=== PATIENT | male | born 1955 | race African-American/Black ===

== ENCOUNTER 2016-08-14 05:23 | Day surgery (SDC) | payer MEDICARE ==
[~2016-08-14] VITALS: Ht 170.2 cm; Wt 94.5 kg
[~2016-08-14 05:23] MED LIST: ATOR10TA84 PO; CLOT15C TP; DULO30CA2 PO; GLIP5 PO; HYDR30CR91 TP; LIDO5CRE18 TP; LORA10TA7 PO; LOVA40TA2 PO; METF500T4 PO; [UNRECOGNIZED DRUG - CODE] TP; [UNRECOGNIZED DRUG - CODE] TP
[2016-08-14] MEDS ORDERED: SODIUM CHLORIDE 0.9% 1,000 ML IV ONE ×2 (05:30→05:48)
[2016-08-14 06:33] LABS: GLUCOSE,POINT OF CARE 130 MG/DL (70-110)
[2016-08-14] MEDS ORDERED: LIDOCAINE HCL/PF 2% 5 ML VIAL ONE (07:36)
[2016-08-14] MEDS ORDERED: IOHEXOL 300 MG/ML 10 ML VIAL ONE (07:36)
[2016-08-14] MEDS ORDERED: FentaNYL CITRATE-PF 100 MCG/2 ML VIAL ONE (07:36)
[2016-08-14] MEDS ORDERED: MIDAZOLAM HCL 2 MG/2 ML VIAL ONE (07:36)
[2016-08-14] MEDS ORDERED: TRIAMCINOLONE ACETONIDE 40 MG/ML VIAL ONE (07:36)
[2016-08-14] MEDS ORDERED: LIDOCAINE HCL/PF 1% 30 ML VIAL ONE (07:36)
[2016-08-14] MEDS ORDERED: BUPIVACAINE HCL/PF 0.75% 10 ML VIAL ONE (07:36)
[2016-08-14] MEDS ORDERED: SODIUM BICARBONATE 50 MEQ/50 ML VIAL ONE (07:37)
[2016-08-14 07:44] VITALS: BP 139/74
[2016-08-14] MEDS ORDERED: BUPIVACAINE HCL/PF 0.75% 10 ML VIAL IARTIC ONE (08:00)
[2016-08-14] MEDS ORDERED: MIDAZOLAM HCL 2 MG/2 ML VIAL IVP ONE (08:00)
[2016-08-14] MEDS ORDERED: TRIAMCINOLONE ACETONIDE 40 MG/ML VIAL IARTIC ONE (08:00)
[2016-08-14] MEDS ORDERED: IOHEXOL 300 MG/ML 10 ML VIAL IARTIC ONE (08:00)
[2016-08-14] MEDS ORDERED: LIDOCAINE HCL/PF 2% 5 ML VIAL IARTIC ONE (08:00)
[2016-08-14] MEDS ORDERED: FentaNYL CITRATE-PF 100 MCG/2 ML VIAL IVP ONE (08:00)
[2016-08-14] MEDS ORDERED: LIDOCAINE 1% 30 ML/SOD BICARB 8.4% 4 ML SQ ONE (08:00)
[2016-08-14 08:10] VITALS: BP 109/65
== END 2016-08-14 10:05 | disposition home or self-care (01) ==
LOC: SDS 05:23
PROVIDERS: ATTEND Specialist
DX: M47.816 Spondylosis without myelopathy or radiculopathy, lumbar region (principal); M54.40 Lumbago with sciatica, unspecified side; E11.9 Type 2 diabetes mellitus without complications; M77.9 Enthesopathy, unspecified; F17.200 Nicotine dependence, unspecified, uncomplicated; F12.90 Cannabis use, unspecified, uncomplicated; Z98.890 Other specified postprocedural states
CPT/HCPCS: 64493; 64494; 82962; J2250; J3010; J3301; J3490 ×4; J7030; Q9967

== ENCOUNTER 2020-04-21 15:45 | Emergency (ER) | payer MEDICARE ==
[~2020-04-21] VITALS: Ht 177.8 cm; Wt 90.9 kg
[~2020-04-21 15:45] MED LIST changes: -DULO30CA2 PO; +DULO30CA96 PO; +METF-444 PO; -METF500T4 PO
[2020-04-21 15:56] VITALS: BP 156/91
[2020-04-21 16:06] LABS: GLUCOSE,POINT OF CARE 59 MG/DL (70-110)
[2020-04-21] MEDS ORDERED: CYCLOBENZAPRINE HCL 10 MG TABLET PO ONE (17:00)
[2020-04-21] MEDS ORDERED: KETOROLAC TROMETHAMINE 30 MG/ML VIAL IM ONE (17:00)
== END 2020-04-21 17:46 | disposition home or self-care (01) ==
LOC: EMS 15:45
DX: M54.5 Low back pain (principal); M25.511 Pain in right shoulder; G89.29 Other chronic pain; E11.9 Type 2 diabetes mellitus without complications; I10 Essential (primary) hypertension; F17.210 Nicotine dependence, cigarettes, uncomplicated
CPT/HCPCS: 82962; 96372; 99283; J1885

== ENCOUNTER 2020-04-22 09:18 | Emergency (ER) | payer MEDICARE ==
[~2020-04-22] VITALS: Ht 167.6 cm; Wt 90.9 kg
[2020-04-22] MEDS ORDERED: ACETAMINOPHEN 500 MG TABLET PO ONE (10:15)
[2020-04-22] MEDS ORDERED: KETOROLAC TROMETHAMINE 30 MG/ML VIAL IM ONE (10:15)
[2020-04-22] MEDS ORDERED: LIDOCAINE 5% TRANSDERMAL PATCH TD ONE (10:15)
[2020-04-22 10:20] VITALS: BP 137/84
== END 2020-04-22 10:38 | disposition home or self-care (01) ==
LOC: EMS 09:18
DX: M54.6 Pain in thoracic spine (principal); E11.9 Type 2 diabetes mellitus without complications; I10 Essential (primary) hypertension; F17.210 Nicotine dependence, cigarettes, uncomplicated; Z79.84 Long term (current) use of oral hypoglycemic drugs
CPT/HCPCS: 96372; 99283; J1885

== ENCOUNTER 2020-10-10 11:02 | Emergency (ER) | payer MEDICARE ==
[~2020-10-10] VITALS: Ht 167.6 cm; Wt 78.6 kg
[2020-10-10] MEDS ORDERED: ASCO500T20 PO (11:13)
[2020-10-10] MEDS ORDERED: FERR-72 PO (11:13)
[2020-10-10] MEDS ORDERED: OXYB5 PO (11:13)
[2020-10-10 11:29] LABS: GLUCOSE,POINT OF CARE 336 MG/DL (70-110)
[2020-10-10 11:53] LABS: ANION GAP 13 mmol/L (8-16); CALCIUM, TOTAL 9.5 mg/dL (8.8-10.5); CARBON DIOXIDE 21 mmol/L (22-29); CHLORIDE 103 mmol/L (98-107); CREATININE 1.32 mg/dL (0.60-1.30); GLOMERULAR FILTR. RATE CALC > 60 mL/min (>60); GLUCOSE,RANDOM 308 mg/dL (70-110); POTASSIUM 3.8 mmol/L (3.5-5.1); SODIUM SERUM 137 mmol/L (136-145); UREA NITROGEN, BLOOD 11 mg/dL (7-18)
[2020-10-10 11:58] LABS: ALANINE AMINOTRANSFERASE 43 U/L (12-78); ALBUMIN 3.5 g/dL (3.4-5.0); ALKALINE PHOSPHATASE 69 U/L (46-116); ASPARTATE AMINOTRANSFERASE 17 U/L (15-37); BILIRUBIN,TOTAL 0.3 mg/dL (0.1-1.0); LIPASE 66 U/L (73-393); TOTAL PROTEIN, SERUM 6.8 g/dL (6.4-8.2)
[2020-10-10 11:59] LABS: BASOPHILS % (AUTO) 0.9 % (0.0-2.0); EOSINOPHILS % (AUTO) 0.1 % (1.0-6.0); HEMATOCRIT 34.8 % (41-53); HEMOGLOBIN 10.9 g/dL (13.5-17.5); LYMPHOCYTES # (AUTO) 1.6 K/uL (1.0-4.8); LYMPHOCYTES % (AUTO) 14.3 % (22.0-44.0); MEAN CORPUSCULAR HEMOGLOBIN 25.9 pg (26.0-34.0); MEAN CORPUSCULAR HGB CONC 31.2 G/dL (31.0-37.0); MEAN CORPUSCULAR VOLUME 83 fL (80-100); MONOCYTES # (AUTO) 0.6 K/uL (0.1-1.0); MONOCYTES % (AUTO) 5.5 % (2.0-9.0); NEUTROPHILS % (AUTO) 79.2 % (40.0-70.0); PLATELET COUNT (AUTO) 239 K/uL (150-450); RED BLOOD CELL COUNT(AUTO) 4.19 MIL/uL (4.50-5.90); RED CELL DISTRIBUTION WIDTH 22.5 % (11.5-14.5)
[2020-10-10 12:46] LABS: APPEARANCE,URINE CLEAR (CLEAR); BILIRUBIN,URINE NEGATIVE (NEGATIVE); GLUCOSE, URINE (UA) >=1000 mg/dL (NEGATIVE); KETONES,URINE TRACE mg/dL (NEGATIVE); LEUKOCYTE ESTERASE ,URINE SMALL (NEGATIVE); NITRATE,URINE POSITIVE (NEGATIVE); OCCULT BLOOD,URINE NEGATIVE (NEGATIVE); PH,URINE 5.5 (5.0-8.0); PROTEIN,URINE NEGATIVE (NEGATIVE)
[2020-10-10 13:13] LABS: BACTERIA,URINE None Seen /HPF (None Seen); RBC,URINE 0-2 /HPF (0-2)
[2020-10-10] MEDS ORDERED: INSULIN REGULAR, HUMAN 100 UNITS/ML SQ ONE (13:45)
[2020-10-10 14:40] VITALS: BP 122/79
[2020-10-10 15:12] LABS: GLUCOMETER DEV NAME(LOC) ERT.5; GLUCOSE,POINT OF CARE 239 MG/DL (70-110)
== END 2020-10-10 15:03 | disposition home or self-care (01) ==
LOC: EMS 11:03
DX: N39.0 Urinary tract infection, site not specified (principal); R33.9 Retention of urine, unspecified; E11.65 Type 2 diabetes mellitus with hyperglycemia
CPT/HCPCS: 36415; 51702; 80053; 81001; 82962; 83690; 85025; 99284; J1815

== ENCOUNTER 2020-10-24 09:19 | Emergency (ER) | payer MEDICARE ==
[~2020-10-24] VITALS: Ht 170.2 cm; Wt 65.9 kg
[~2020-10-24 09:19] MED LIST changes: +ASCO500T20 PO; -ATOR10TA84 PO; +ATOR40TA28 PO; +CAPS60CR3 TP; -CLOT15C TP; +DUTA.5 PO; +FERR-72 PO; -HYDR30CR91 TP; +LEVO-72 PO; -LIDO5CRE18 TP; +OXYB5 PO; +TAMS-13 PO; -[UNRECOGNIZED DRUG - CODE] TP; -[UNRECOGNIZED DRUG - CODE] TP
[2020-10-24 10:30] LABS: APPEARANCE,URINE TURBID (CLEAR); GLUCOSE, URINE (UA) NEGATIVE (NEGATIVE); KETONES,URINE TRACE mg/dL (NEGATIVE); LEUKOCYTE ESTERASE ,URINE MODERATE (NEGATIVE); NITRATE,URINE NEGATIVE (NEGATIVE); OCCULT BLOOD,URINE LARGE (NEGATIVE); PROTEIN,URINE SEE CONFIRM (NEGATIVE)
[2020-10-24 10:33] LABS: BILIRUBIN,URINE PRELIM. POSITIVE (NEGATIVE); SULFOSALICYLIC ACID,URINE 3+ (Negative)
[2020-10-24 10:34] LABS: BACTERIA,URINE Moderate /HPF (None Seen); RBC,URINE >100 /HPF (0-2)
[2020-10-24] MEDS ORDERED: LEVOFLOXACIN 250 MG TABLET PO ONE (11:15)
[2020-10-24 11:27] VITALS: BP 122/68
== END 2020-10-24 11:29 | disposition home or self-care (01) ==
LOC: EMS 09:19
DX: T83.038A Leakage of other urinary catheter, initial encounter (principal); N39.0 Urinary tract infection, site not specified; E11.9 Type 2 diabetes mellitus without complications; I10 Essential (primary) hypertension; Z79.84 Long term (current) use of oral hypoglycemic drugs; Z79.899 Other long term (current) drug therapy; F17.210 Nicotine dependence, cigarettes, uncomplicated; Y84.6 Urinary catheterization as the cause of abnormal reaction of the patient, or of later complication, without mention of misadventure at the time of the procedure; Y73.8 Miscellaneous gastroenterology and urology devices associated with adverse incidents, not elsewhere classified
CPT/HCPCS: 51702; 81001; 81002; 87086; 99284; Z7502; Z7610

== ENCOUNTER 2024-07-01 10:24 | Emergency (ER) | payer MEDICARE ==
[~2024-07-01] VITALS: Ht 177.8 cm; Wt 72.0 kg
[~2024-07-01 10:24] MED LIST changes: +DULO-114 PO; -DULO30CA96 PO; -DUTA.5 PO; +DUTA0.5C38 PO; -GLIP5 PO; +GLIP5TAB16 PO; -OXYB5 PO; +OXYB5TAB20 PO; -TAMS-13 PO; +TAMS0.4C94 PO
[2024-07-01 10:33] VITALS: TEMP 97.9
[2024-07-01 11:08] LABS: APPEARANCE,URINE CLEAR (CLEAR); BILIRUBIN,URINE NEGATIVE (NEGATIVE); COLOR,URINE YELLOW (YELLOW); GLUCOSE, URINE (UA) NEGATIVE (NEGATIVE); KETONES,URINE NEGATIVE (NEGATIVE); LEUKOCYTE ESTERASE ,URINE NEGATIVE (NEGATIVE); NITRATE,URINE NEGATIVE (NEGATIVE); OCCULT BLOOD,URINE NEGATIVE (NEGATIVE); PH,URINE 6.5 (5.0-8.0); PROTEIN,URINE TRACE mg/dL (NEGATIVE); SPECIFIC GRAVITIY, URINE 1.023 (1.003-1.030); UROBILINOGEN,URINE <=1.0 mg/dL (<=1.0)
[2024-07-01 11:50] VITALS: BP 129/94; PULSE 87; RESP 18; O2SAT 99
== END 2024-07-01 11:55 | disposition home or self-care (01) ==
LOC: EMS 10:27
DX: N40.1 Benign prostatic hyperplasia with lower urinary tract symptoms (principal); R39.198 Other difficulties with micturition; E11.9 Type 2 diabetes mellitus without complications; E78.00 Pure hypercholesterolemia, unspecified; I10 Essential (primary) hypertension; F17.210 Nicotine dependence, cigarettes, uncomplicated
CPT/HCPCS: 51798; 81003; 99284